=== PATIENT | female | born 1975 | race Caucasian/White ===

== ENCOUNTER 2021-01-21 18:12 | Emergency (ER) | payer MEDICAID ==
[~2021-01-21] VITALS: Ht 162.6 cm; Wt 75.0 kg
[2021-01-21] MEDS ORDERED: SODIUM CHLORIDE 0.9% 2,000 ML IV ONE (18:45)
[2021-01-21] MEDS ORDERED: ACETAMINOPHEN 500 MG TABLET PO ONE (18:45)
[2021-01-21] MEDS ORDERED: KETOROLAC TROMETHAMINE 30 MG/ML VIAL IVP ONE (18:45)
[2021-01-21 19:27] LABS: BASOPHILS % (AUTO) 0.4 % (0.0-2.0); EOSINOPHILS % (AUTO) 0.3 % (1.0-6.0); HEMATOCRIT 38.9 % (36-46); HEMOGLOBIN 12.4 g/dL (12.0-16.0); LYMPHOCYTES # (AUTO) 0.9 K/uL (1.0-4.8); LYMPHOCYTES % (AUTO) 27.1 % (22.0-44.0); MEAN CORPUSCULAR HEMOGLOBIN 24.6 pg (26.0-34.0); MEAN CORPUSCULAR VOLUME 77 fL (80-100); MONOCYTES # (AUTO) 0.3 K/uL (0.1-1.0); MONOCYTES % (AUTO) 9.9 % (2.0-9.0); NEUTROPHILS # (AUTO) 2.1 K/uL (1.8-7.7); NEUTROPHILS % (AUTO) 62.3 % (40.0-70.0); PLATELET COUNT (AUTO) 148 K/uL (150-450); RED BLOOD CELL COUNT(AUTO) 5.07 MIL/uL (4.00-5.20)
[2021-01-21 19:28] LABS: COVID AG,FIA SOURCE NASOPHARYNGEAL
[2021-01-21 19:32] LABS: APPEARANCE,URINE CLEAR (CLEAR); BILIRUBIN,URINE NEGATIVE (NEGATIVE); GLUCOSE, URINE (UA) >=1000 mg/dL (NEGATIVE); KETONES,URINE 15 mg/dL (NEGATIVE); LEUKOCYTE ESTERASE ,URINE NEGATIVE (NEGATIVE); NITRATE,URINE NEGATIVE (NEGATIVE); OCCULT BLOOD,URINE LARGE (NEGATIVE); PROTEIN,URINE POS 1+ (NEGATIVE); UROBILINOGEN,URINE 0.2 mg/dL (<=1.0)
[2021-01-21 19:34] LABS: BACTERIA,URINE Rare /HPF (None Seen); RBC,URINE 51-100 /HPF (0-2); SQUAMOUS EPITHELIAL CELL,UR Few /LPF (None Seen)
[2021-01-21 19:37] LABS: ANION GAP 12 mmol/L (8-16); CALCIUM, TOTAL 8.1 mg/dL (8.8-10.5); CARBON DIOXIDE 27 mmol/L (22-29); CHLORIDE 96 mmol/L (98-107); CREATININE 0.65 mg/dL (0.60-1.30); GLOMERULAR FILTR. RATE CALC > 60 mL/min (>60); GLUCOSE,RANDOM 245 mg/dL (70-110); POTASSIUM 3.1 mmol/L (3.5-5.1); SODIUM SERUM 135 mmol/L (136-145); UREA NITROGEN, BLOOD 6 mg/dL (7-18)
[2021-01-21 19:42] LABS: PLATELET MORPHOLOGY COMMENT LARGE PLTS PRESENT
[2021-01-21 19:47] LABS: ALANINE AMINOTRANSFERASE 47 U/L (12-78); ALBUMIN 3.1 g/dL (3.4-5.0); ALKALINE PHOSPHATASE 98 U/L (46-116); ASPARTATE AMINOTRANSFERASE 44 U/L (15-37); BILIRUBIN,TOTAL 0.4 mg/dL (0.1-1.0); HCG,QUANTITATIVE < 1 mIU/mL (0-6); LIPASE 120 U/L (73-393); TOTAL PROTEIN, SERUM 7.8 g/dL (6.4-8.2)
[2021-01-21 19:57] LABS: LACTIC ACID 1.5 mmol/L (0.4-2.0)
[2021-01-21 20:00] VITALS: BP 129/88
[2021-01-21] MEDS ORDERED: POTASSIUM CHLORIDE 10% 40 MEQ/30 ML LIQUID UDCUP PO ONE (20:15)
== END 2021-01-21 20:00 | disposition home or self-care (01) ==
LOC: EMS 18:15
DX: U07.1 COVID-19 (principal); E87.6 Hypokalemia; J18.9 Pneumonia, unspecified organism
CPT/HCPCS: 36415; 71045; 80053; 81001; 83605; 83690; 84484; 84702; 85025; 87040; 87426; 93005; 99285; J7030; U0003; J1885